=== PATIENT | female | born 1930 | race Caucasian/White ===

== ENCOUNTER 2017-01-30 09:30 | Emergency (ER) | payer MEDICARE, OTHER ==
[~2017-01-30 09:30] MED LIST: ACIDOPHILU1 PO; ASAB PO; ATV.5 PO; CIPRO PO; ENDOCET1 TAB PO; HYZAAR 100/25 T1 TAB PO; MACROBID PO; MACRODANTIN 10100 MG PO; MAG OXIDE250 MG PO; MEVACOR PO; PROBIOTIC PO; ULTRAM50 PO; VITAMIN D31000 UNIT PO
== END 2017-01-30 10:25 | disposition home or self-care (01) ==
LOC: ER 09:30
DX: I10 Essential (primary) hypertension (principal); I48.91 Unspecified atrial fibrillation; E78.5 Hyperlipidemia, unspecified; Z79.82 Long term (current) use of aspirin; Z79.899 Other long term (current) drug therapy
CPT/HCPCS: 81001; 85025; 85610; 85730; 87040; 93005; 99284